=== PATIENT | female | born 1945 | race Caucasian/White ===

== ENCOUNTER → 2025-04-09 | Outpatient (CLI) | payer MEDICARE, SELFPAY ==
[2025-04-09 11:13] LABS: Albumin, Serum 4.2 gm/dL (3.4-4.8); Anion Gap 9 (7-16); BUN/Creatinine Ratio 19 Ratio (12-20); Blood Urea Nitrogen 15 mg/dL (9-23); Calcium 9.8 mg/dL (8.3-10.6); Calcium (Corrected) 9.8 mg/dL (8.5-10.1); Carbon Dioxide 26.7 mMol/L (20.0-31.0); Chloride 105 mMol/L (98-107); Creatinine (Component) 0.8 mg/dL (0.6-1.3); Glucose 87 mg/dL (74-106); Osmolality,Calculated 281 (275-295); Phosphorous 3.6 mg/dL (2.4-5.1); Potassium 3.7 mMol/L (3.4-5.1); Sodium 141 mMol/L (136-145); eGFR > 60 See Note
== END | disposition home or self-care (01) ==
PROVIDERS: PCP Internal Medicine; Referring Provider Internal Medicine; Visit Provider Internal Medicine
DX: I10 Essential (primary) hypertension (principal)
CPT/HCPCS: 36415; 80069

== ENCOUNTER → 2025-04-17 | Outpatient (CLI) | payer MEDICARE, SELFPAY ==
[2025-04-17 13:03] LABS: OBS Performed By LAB; OBS QC OK? Yes
[2025-04-17 15:17] LABS: OBS Developer Expiration Date 123126; OBS Developer Lot # 1-24 551749; Occult Blood, Stool Negative (Negative); Occult Blood, Stool #2 Negative (Negative); Occult Blood, Stool #3 Negative (Negative)
== END | disposition home or self-care (01) ==
LOC: SLDO 12:49
PROVIDERS: Referring Provider Internal Medicine; Visit Provider Internal Medicine
DX: Z12.11 Encounter for screening for malignant neoplasm of colon (principal)
CPT/HCPCS: 82270

== ENCOUNTER → 2025-06-12 | Outpatient (CLI) | payer MEDICARE, SELFPAY ==
--- NOTE | 2025-06-12 09:16 | XR_ITS ---
Examination: AP pelvis single view TECHNIQUE: AP portable supine pelvis single view Date and time: June 12, 2025 1007 hours INDICATIONS: Left hip pain, this week, status post hip replacement 2 years ago. FINDINGS: Left hip hemiarthroplasty with satisfactory alignment. No fracture. No loosening of the prosthetic components. Right hip bones of the pelvis intact Incidental note significant degenerative disc disease L4-L5 IMPRESSION: Left hip hemiarthroplasty with satisfactory alignment
--- NOTE | 2025-06-12 09:16 | XR_ITS ---
Examination:Left hip AP, lateral, AP pelvis 3 views Technique: Hip AP lateral, AP pelvis, 3 views Exam date and time:June 12, 2025 1002 hours INDICATIONS: Left hip pain this week, left hip replacement 2 years ago. FINDINGS: Left hip hemiarthroplasty. Satisfactory alignment. No loosening of the prosthetic components. Right hip bones of the pelvis intact IMPRESSION: Left hip hemiarthroplasty with satisfactory alignment.
== END | disposition home or self-care (01) ==
LOC: CDIM 07:59
PROVIDERS: PCP Internal Medicine; Referring Provider Orthopaedic Surgery; Visit Provider Orthopaedic Surgery
DX: M25.552 Pain in left hip (principal); Z96.642 Presence of left artificial hip joint
CPT/HCPCS: 72170; 73502

== ENCOUNTER 2025-07-18 09:40 | Outpatient (AMB) | payer MEDICARE, SELFPAY ==
[2025-07-18 09:52] VITALS: BP 152/82; PULSE 74; RESP 18; TEMP 36.3; O2SAT 93; BMI 22.1
--- NOTE | 2025-07-18 09:52 | ORTHONT_ITS ---
Vital signs 07/18/25 09:52 Height 1.65 m Height Method Measured Weight 60.384 kg Weight Measurement Method Standing Scale BMI 22.1 BP 152/82 H Blood Pressure Source Automatic Cuff Blood Pressure Location Left Upper Arm Position Sitting Respiration 18 Pulse 74 Pulse Source Monitor Temp 97.4 F Temp Source Temporal Artery Scan Pulse Oximetry (%) 93 L Oxygen Delivery Method Room Air Med/Allergies Allergies & Medications Allergies latex Allergy (Intermediate, Verified 07/18/25 09:53) Hives diclofenac Adverse Reaction (Mild, Verified 07/18/25 09:53) Headache tramadol Adverse Reaction (Mild, Verified 07/18/25 09:53) HEADACHE Medication Reconciliation calcium carbonate (Calcium 500) 1,000 mg PO DAILY 05/31/18 [History Confirmed 07/18/25] diclofenac sodium 1 % topical gel 2 g topical QID 10/17/20 [History Confirmed 07/18/25] metoprolol succinate 25 mg capsule sprinkle, ext. release 24 hr 25 mg PO QDAY 10/17/20 [History Confirmed 07/18/25] [id number]-zrqd 8 mg-folic 400 mcg-K 50 mcg-lutein 300 mcg tablet (Centrum Silver Women) 1 tab PO QDAY 10/17/20 [History Confirmed 07/18/25] acetaminophen 650 mg tablet,extended release 650 mg PO Q12H 07/31/21 [History Confirmed 07/18/25] cetirizine 10 mg tablet (Aller-Bryan) 10 mg PO QDAY 07/31/21 [History Confirmed 07/18/25] diclofenac sodium 3 % topical gel 1 applic topical BID #100 grams 07/18/25 [Rx] meloxicam 7.5 mg tablet 7.5 mg PO QDAY #45 tabs 07/18/25 [Rx] Exam Exam Patient is in no acute distress and is cooperative with the examination today. Breathing is nonlabored. In no respiratory distress. Patient has no paraspinal tenderness. Spinal deformity cannot be appreciated. The gait of the patient is nonantalgic Bilateral extremities were evaluated and demonstrates sensation intact to light touch. Palpable pedal pulses are present. No significant edema is present. Bilateral knees were examined and the patient has full strength and range of motion.. The right hip was examined. Patient was able to flex to 90 degrees, adduct to 30 degrees, abduct to 40 degrees, internally rotate to 20 degrees, and externally rotate to 20 degrees. Patient has a negative logroll. Stinchfield is negative. The patient is nontender diffusely to touch. The left hip was examined. Patient was able to flex to 90 degrees, adduct to 30 degrees, abduct to 40 degrees, internally rotate to 20 degrees, and externally rotate to 20 degrees. Patient has a negative logroll. The stinchfield is negative. The patient has pain over the ischial tuberosity Left hip x-rays demonstrate cementless total hip replacement in good alignment and position Assessment and Plan Problem List (1) Pain in left hip: Status: Acute Plan Patient is a pleasant 80-year-old female with a left hip pain status post left total hip replacement. She has pain over the ischial tuberosity which is likely ischial bursitis versus hamstring tendinitis. We recommend a home exercise program with physical therapy and anti-inflammatories. I sent her prescription for anti-inflammatories. I do not see anything wrong with the components for her hip replacement and she has no groin pain or any thigh pain. I do think that this is likely soft tissue. We will continue with conservative treatment Advanced Care Planning Discussion Advance care planning discussed with:: patient Office Procedures GNS Level of Care Nursing/Assessment Patient Status: Initial/New Patient Nursing Assessment/Reassesment: Medication Reconciliation, Orthostatic Vitals, Update PMH in EMR and Vital Signs Coordination of Care: Complex Care and Chronic Disease 1-5, Education Complex Pt/Fam, Consent,records obtained, informed consent, Lab and Imaging orders, Results/Orders obtained and Staff clarify orders New Patient Charge New Patient Point Assignment: [id number] New Patient Point Charge: TICKET MARKER Level 4 ([id number]) MA Intake Visit Data Collection New Patient or Established: New Patient (never been to [facility]) Reason for Visit:: LEFT HIP PAIN Seen by Clinical Staff ONLY (RN/MA): No Cyber Security Analyst Required: No PCP or OBGYN visit in last 3 months: Yes Hx Now: No Do You Feel Safe at Home: Yes Authorities Contacted: N/A Questionairres Past Medical History Past Medical History Have you ever been diagnosed with any of the following: Neurological Problems Seizures: No Cardiology Problems Congestive Heart Failure: No Edema: No Cellulitis: No (BRUISE TO LEFT ARM) Hypertension: Yes Varicose Veins: No Respiratory Problems Chronic Obstructive Pulmonary Disease (COPD): No Asthma: No Tuberculosis: No Sleep Apnea: No Stomache/Intestinal Problems Hepatitis: No Gastrointestinal Bleed: Yes Genital/Urinary Problems Renal Disease: No Reproductive Problems Previous Pregnancies: Yes Musculoskeletal Problems Arthritis: Yes Head,Eye,Nose,Throat Problems Cataracts: Yes Endocrine Problems Diabetes Mellitus Type 1: No Diabetes Mellitus Type 2: No Blood Problems Anemia: Yes Sickle Cell Disease: No Other Problems Hospitalization: Yes Shingles: No Falls: No Blood Transfusions: Yes Blood Transfusion Reaction: No Anesthesia Reactions: No Chemotherapy: No Radiation Therapy: No MRSA: No Chicken Pox: Yes Measles: Yes Rubella (Persian Measles): Yes Cancer: Yes Surgical History Hysterectomy: Yes Pacemaker: No Subjective Visit Visit for: new patient and hip Immunization / Flu Flu Vaccine in the Last 12 Months: Yes Flu Vaccine Exclusion Criteria: Already Received History of Present Illness Chief complaint: LEFT HIP PAIN Date of injury / onset of symptoms: 6 MONTHS AGO Date of 1st surgery (if applicable): 2 YEARS AGO Jenny is a pleasant 72-year-old female with a left total hip replacement done 2 years ago. She has had a recent increase in left hip pain. The pain is primarily in the buttocks over the ischial tuberosity. She has had 2 injections today which provided about 1 month of relief. She has not had any oral anti- inflammatories. She has no difficulty putting on socks and shoes. She has a lot of pain sitting on a hard surface Personal History Occupation: RETIRED Red flag PMH: none BMI Counceling provided: Yes Pain Pain level (0-10): 3 Pain location: buttock Pain quality: aching Pain timing: night Associated signs & symptoms: none Ambulatory data Ambulatory device: none Treatments Number of previous injections: 2 Improvement with previous injections: No Number of Physical Therapy sessions: 12 Improvement with PT: No Improvement with NSAIDS: no Review of Systems Review of Systems: All systems negative unless otherwise noted in HPI.
== END 2025-07-18 10:12 | disposition home or self-care (01) ==
LOC: HODSRG 09:40
PROVIDERS: PCP Internal Medicine; Referring Provider Internal Medicine; Supervising Provider Orthopaedic Surgery Adult Reconstructive Orthopaedic Surgery; Visit Provider Orthopaedic Surgery Adult Reconstructive Orthopaedic Surgery
DX: M25.552 Pain in left hip (principal); Z96.642 Presence of left artificial hip joint; I10 Essential (primary) hypertension
CPT/HCPCS: 99204; G0463

== ENCOUNTER → 2025-09-12 | Outpatient (CLI) | payer MEDICARE, SELFPAY ==
--- NOTE | 2025-09-12 13:00 | XR_ITS ---
Examination: Screening digital mammography, bilateral Computer aided detection 3-D breast Tomosynthesis, bilateral Date and time of exam: 09/12/2025, 12:57 p.m. Comparisons: 10/24/2023 Indications: Screening Technique: Nonmagnified MLO, CC views of the breasts to been obtained, reconstructed from 3-D Tomosynthesis images. R2 computer aided detection program utilized for evaluation of suspicious masses and/or abnormal calcifications. 3-D Tomosynthesis images obtained. Technologist: Findings: There are scattered areas of fibroglandular density. No evidence of abnormal masses or suspicious calcifications. Impression: BI-RADS category 2: Benign findings Recommend 1 year follow-up mammogram
--- NOTE | 2025-09-12 13:20 | XR_ITS ---
Examination: Bone densitometry Date and time of exam: September 12, 2025, 1327 hours INDICATIONS: Hysterectomy age 43, personal history osteopenia Technique: Lumbar spine and hip total bone mineralization values of an calculated. Peak reference and age match control results have been displayed. Findings: Lumbar spine total bone mineralization is 0.971 gm/cm2. This is 0.7 standard deviations below peak reference. This is 1.9 standard deviations above age-matched controls. Hip total bone mineralization is 0.725 gm/cm2 This is 1.8 standard deviations below peak reference. This is 0.2 standard deviations above age-matched controls Impression: There is normal mineralization based on lumbar spine measurements. There is osteopenia based on hip measurements Lumbar mineralization is decreased 1.5% compared with March 24, 2023 Hip mineralization is increased 1.6% compared with March 24, 2023
[2025-09-12 14:41] LABS: Albumin, Serum 4.8 gm/dL (3.4-4.8); Anion Gap 8 (7-16); BUN/Creatinine Ratio 15 Ratio (12-20); Blood Urea Nitrogen 15 mg/dL (9-23); Calcium 9.5 mg/dL (8.3-10.6); Calcium (Corrected) 9.5 mg/dL (8.5-10.1); Carbon Dioxide 29.1 mMol/L (20.0-31.0); Chloride 106 mMol/L (98-107); Creatinine (Component) 1.0 mg/dL (0.6-1.3); Glucose 87 mg/dL (74-106); Osmolality,Calculated 284 (275-295); Phosphorous 4.2 mg/dL (2.4-5.1); Potassium 3.6 mMol/L (3.4-5.1); Sodium 143 mMol/L (136-145); eGFR 58 See Note
== END | disposition home or self-care (01) ==
LOC: CDIM 12:53 → COPL 13:28
PROVIDERS: PCP Internal Medicine; Referring Provider Internal Medicine; Visit Provider Internal Medicine
DX: Z12.31 Encounter for screening mammogram for malignant neoplasm of breast (principal); R92.8 Other abnormal and inconclusive findings on diagnostic imaging of breast; R92.323 Mammographic fibroglandular density, bilateral breasts; M85.88 Other specified disorders of bone density and structure, other site; I10 Essential (primary) hypertension
CPT/HCPCS: 36415; 77063; 77067; 77080; 80069